=== PATIENT | male | born 1985 | race Hispanic/Latino ===

== ENCOUNTER 2024-09-23 22:05 | Emergency (ER) | payer OTHER, SELFPAY ==
[2024-09-23] MEDS ORDERED: Methocarbamol 500 MG TAB ONE (22:59)
== END 2024-09-23 23:06 | disposition home or self-care (01) ==
LOC: CSHERS 22:05
DX: M54.50 Low back pain, unspecified (principal)
CPT/HCPCS: 72100; 99283